=== PATIENT | male | born 1995 | race Caucasian/White ===

== ENCOUNTER 2017-03-07 04:23 | Emergency (ER) | payer MEDICAID, OTHER ==
[~2017-03-07] VITALS: Ht 180.3 cm; Wt 86.0 kg
[2017-03-07 07:19] VITALS: BP 138/68
== END 2017-03-07 07:21 | disposition home or self-care (01) ==
LOC: ER 04:30
DX: R51 Headache (principal)
CPT/HCPCS: 99283

== ENCOUNTER 2018-03-30 22:01 | Emergency (ER) | payer MEDICAID, OTHER ==
[~2018-03-30] VITALS: Ht 177.8 cm; Wt 100.0 kg
[2018-03-31 01:05] VITALS: BP 121/68
== END 2018-03-31 01:15 | disposition home or self-care (01) ==
LOC: ER 22:01
DX: Z00.01 Encounter for general adult medical examination with abnormal findings (principal); J45.909 Unspecified asthma, uncomplicated; F31.9 Bipolar disorder, unspecified
CPT/HCPCS: 99283

== ENCOUNTER 2020-03-16 05:08 | Emergency (ER) | payer MEDICAID, OTHER ==
[~2020-03-16] VITALS: Ht 180.3 cm; Wt 95.0 kg
[2020-03-16 09:10] VITALS: BP 131/86
== END 2020-03-16 09:18 | disposition home or self-care (01) ==
LOC: ER 05:08
DX: J45.909 Unspecified asthma, uncomplicated (principal); K21.9 Gastro-esophageal reflux disease without esophagitis; F32.9 Major depressive disorder, single episode, unspecified; Z03.818 Encounter for observation for suspected exposure to other biological agents ruled out
CPT/HCPCS: 99281

== ENCOUNTER 2022-09-28 21:32 | Emergency (ER) | payer MEDICAID, MEDICARE ==
[~2022-09-28] VITALS: Ht 180.3 cm; Wt 110.0 kg
[2022-09-28] MEDS ORDERED: PREDNISONE 20MG TABLET PO ONE (22:45)
[2022-09-28] MEDS ORDERED: ALBUTEROL (0.083%) 2.5MG/3ML NEB HHN ONE (22:45)
[2022-09-29] MEDS ORDERED: ALBUTEROL (0.083%) 2.5MG/3ML NEB HHN ONE (00:30)
[2022-09-29] MEDS ORDERED: P20 MT (01:10)
[2022-09-29] MEDS ORDERED: ALBU18HF2 IH (01:10)
[2022-09-29 02:00] VITALS: BP 132/81
== END 2022-09-29 02:08 | disposition home or self-care (01) ==
LOC: ER 21:32
DX: J45.901 Unspecified asthma with (acute) exacerbation (principal); B34.9 Viral infection, unspecified; F41.9 Anxiety disorder, unspecified; J45.909 Unspecified asthma, uncomplicated; F32.9 Major depressive disorder, single episode, unspecified; Z20.822 Contact with and (suspected) exposure to COVID-19
CPT/HCPCS: 71045; 87426; 87804; 93005; 94640; 99285; C9803; J7512; Z7610

== ENCOUNTER 2023-03-30 23:25 | Emergency (ER) | payer MEDICAID, MEDICARE ==
[~2023-03-30] VITALS: Ht 175.3 cm; Wt 91.0 kg
[~2023-03-30 23:25] MED LIST: ALBU18HF2 IH; P20 MT
[2023-03-31] MEDS ORDERED: PREDNISONE 20MG TABLET PO ONE
[2023-03-31] MEDS ORDERED: IPRATROPIUM/ALBUTEROL 0.5-3(2.5)MG/3ML NEB HHN ONE
[2023-03-31] MEDS ORDERED: METHYLPREDNISOLONE SOD SUCC 125 MG/2 ML VIAL IV ONE (00:15)
[2023-03-31] MEDS ORDERED: MAGNESIUM 2 G PREMIX 50 ML IV ONE (00:15)
[2023-03-31 00:38] LABS: BASOPHILS % 0.6 % (0.0-2.0); EOSINOPHILS % 4.7 % (0.0-5.0); HEMATOCRIT. 44.2 % (42.0-52.0); HEMOGLOBIN. 14.7 g/dL (14.0-18.0); LYMPHOCYTES % 30.2 % (20.0-50.0); MEAN CORPUSCULAR HEMOGLOBIN 28.1 pg (28.0-32.0); MEAN CORPUSCULAR VOLUME 84.6 fL (80.0-94.0); MEAN PLATELET VOLUME 8.9 fl (7.4-10.4); MONOCYTES % 4.8 % (2.0-8.0); NEUTROPHILS % 59.7 % (40.0-76.0); PLATELET 201 x1000/uL (130-400); RED BLOOD CELL COUNT 5.22 mill/uL (4.7-6.1); RED CELL DISTRIBUTION WIDTH 13.6 % (11.6-14.6)
[2023-03-31 00:50] LABS: CHLORIDE 107 mEq/L (98-107)
[2023-03-31 01:50] VITALS: BP 117/63
[2023-03-31] MEDS ORDERED: P20 PO (02:14)
[2023-03-31] MEDS ORDERED: ALBU18HF2 IH (02:14)
[2023-03-31] MEDS ORDERED: POTASSIUM CHLORIDE 20MEQ TABLET SR PO NR (02:15)
[2023-03-31] MEDS ORDERED: DIPHENHYDRAMINE 25MG CAPSULE PO NR (02:30)
== END 2023-03-31 02:55 | disposition home or self-care (01) ==
LOC: ER 23:25
DX: J45.901 Unspecified asthma with (acute) exacerbation (principal); E87.6 Hypokalemia
CPT/HCPCS: 36415; 71045; 80048; 85025; 93005; 96365; 96375; 99285; J2930; J3475; Q0163; J7512

== ENCOUNTER 2024-03-06 13:57 | Emergency (ER) | payer MEDICARE ==
[~2024-03-06] VITALS: Ht 180.3 cm; Wt 113.0 kg
[~2024-03-06 13:57] MED LIST changes: +P20 PO
[2024-03-06 14:13] VITALS: O2SAT 100
[2024-03-06] MEDS: LIDOCAINE 5% PATCH TOP SCH (16:00)
[2024-03-06] MEDS: ACETAMINOPHEN 325MG TABLET PO NR (16:01)
[2024-03-06 18:13] VITALS: BP 124/70; PULSE 80; RESP 16; TEMP 98.5
== END 2024-03-06 18:25 | disposition home or self-care (01) ==
LOC: ER 13:57
DX: M54.50 Low back pain, unspecified (principal); R07.81 Pleurodynia; F41.9 Anxiety disorder, unspecified; J45.909 Unspecified asthma, uncomplicated; F32.9 Major depressive disorder, single episode, unspecified
CPT/HCPCS: 99283

== ENCOUNTER 2024-07-08 13:19 | Emergency (ER) | payer MEDICARE ==
[~2024-07-08] VITALS: Ht 180.3 cm; Wt 120.0 kg
[2024-07-08 13:23] VITALS: O2SAT 100
[2024-07-08] MEDS ORDERED: KETOROLAC 30MG/ML VIAL IM ONE (13:45)
[2024-07-08] MEDS: KETOROLAC 30MG/ML VIAL IM NR (13:45)
[2024-07-08] MEDS: ACYCLOVIR 400 MG TABLET PO ONE (13:45)
[2024-07-08 13:54] LABS: BASOPHILS % 0.5 % (0.0-2.0); EOSINOPHILS % 3.9 % (0.0-5.0); HEMATOCRIT. 38.6 % (42.0-52.0); HEMOGLOBIN. 12.7 g/dL (14.0-18.0); LYMPHOCYTES % 33.1 % (20.0-50.0); MEAN CORPUSCULAR VOLUME 84.8 fL (80.0-94.0); MEAN PLATELET VOLUME 8.7 fl (7.4-10.4); MONOCYTES % 7.5 % (2.0-8.0); PLATELET 239 x1000/uL (130-400); RED BLOOD CELL COUNT 4.55 mill/uL (4.7-6.1); RED CELL DISTRIBUTION WIDTH 13.9 % (11.6-14.6); WHITE BLOOD COUNT 7.6 x1000/uL (4.5-11.0)
[2024-07-08 13:57] LABS: CARBON DIOXIDE 26 mEq/L (21-32); CHLORIDE 106 mEq/L (98-107); POTASSIUM 3.9 mEq/L (3.5-5.1); SODIUM 138 mEq/L (136-145)
[2024-07-08 13:58] LABS: CALCIUM 9.4 mg/dL (8.7-10.4)
[2024-07-08 14:03] LABS: CREATININE 0.7 mg/dL (0.6-1.3); GLUCOSE 108 mg/dL (70-105); UREA NITROGEN BLOOD 11 mg/dL (9-23)
[2024-07-08 14:05] LABS: TROPONIN I HIGH SENSITIVITY 27 ng/L (3.0-53)
[2024-07-08 14:27] LABS: CLARITY URINE CLEAR (CLEAR); COLOR URINE YELLOW (YELLOW); GLUCOSE URINE NEGATIVE (NEGATIVE); KETONES URINE NEGATIVE (NEGATIVE); LEUKOCYTE ESTERASE URINE NEGATIVE (NEGATIVE); NITRITE URINE NEGATIVE (NEGATIVE); OCCULT BLOOD URINE NEGATIVE (NEGATIVE); PH URINE 5.5 (4.5-8.0); PROTEIN URINE NEGATIVE (NEGATIVE); SPECIFIC GRAVITY URINE 1.019 (1.005-1.030); UROBILINOGEN URINE 0.2 E.U./dL (0.2-1.0)
[2024-07-08 15:08] LABS: TROPONIN I HIGH SENSITIVITY 26 ng/L (3.0-53)
[2024-07-08 16:30] VITALS: BP 113/75; PULSE 63; RESP 20; TEMP 98.3
[2024-07-08] MEDS ORDERED: ACYC200C31 MT (17:14)
== END 2024-07-08 16:49 | disposition home or self-care (01) ==
LOC: ER 13:19
DX: R07.89 Other chest pain (principal); F41.9 Anxiety disorder, unspecified; J45.909 Unspecified asthma, uncomplicated; F32.9 Major depressive disorder, single episode, unspecified; Z79.899 Other long term (current) drug therapy
CPT/HCPCS: 80048; 81003; 85025; 84484; 36415; 71045; 96372; 99284; J1885; Z7610

== ENCOUNTER 2025-01-29 12:20 | Emergency (ER) | payer MEDICARE ==
[~2025-01-29] VITALS: Ht 180.3 cm; Wt 113.0 kg
[~2025-01-29 12:20] MED LIST changes: +ACYC200C31 MT
[2025-01-29 12:24] VITALS: O2SAT 98
[2025-01-29 12:25] VITALS: BP 111/44; PULSE 72; RESP 12; TEMP 36.5; O2SAT 97
== END 2025-01-29 14:39 | disposition home or self-care (01) ==
LOC: ER 12:20
DX: B34.9 Viral infection, unspecified (principal); J45.909 Unspecified asthma, uncomplicated; Z79.52 Long term (current) use of systemic steroids
CPT/HCPCS: 71045; 99283

== ENCOUNTER 2025-03-13 12:16 | Emergency (ER) | payer MEDICARE ==
[~2025-03-13] VITALS: Ht 182.9 cm; Wt 123.0 kg
[2025-03-13] MEDS: PREDNISONE 20MG TABLET PO ONE (13:08)
[2025-03-13 13:15] VITALS: PULSE 74; RESP 18; O2SAT 96
[2025-03-13] MEDS: ALBUTEROL (0.083%) 2.5MG/3ML NEB HHN ONE (13:16)
[2025-03-13] MEDS ORDERED: P50 MT (13:57)
[2025-03-13] MEDS ORDERED: ALBU18HF2 IH (13:57)
[2025-03-13 14:20] VITALS: BP 121/68; PULSE 72; RESP 18; TEMP 36.7; O2SAT 96
== END 2025-03-13 14:20 | disposition home or self-care (01) ==
LOC: ER 12:16
DX: J45.901 Unspecified asthma with (acute) exacerbation (principal); Z79.52 Long term (current) use of systemic steroids
CPT/HCPCS: 71045; 94640; 99283; J7512; Z7610 ×2; 94070; 94664

== ENCOUNTER 2025-03-29 16:44 | Emergency (ER) | payer MEDICARE ==
[~2025-03-29] VITALS: Ht 180.3 cm; Wt 127.0 kg
[~2025-03-29 16:44] MED LIST changes: +P50 MT
[2025-03-29 16:46] VITALS: PULSE 140; RESP 18; O2SAT 96
[2025-03-29 16:49] VITALS: BP 111/75; TEMP 36.9; O2SAT 94
[2025-03-29 17:43] LABS: DIFFERENTIAL COMMENT 1; HEMATOCRIT. 39.5 % (42.0-52.0); MEAN CORPUSCULAR HEMOGLOBIN 27.8 pg (28.0-32.0); MEAN CORPUSCULAR VOLUME 84.2 fL (80.0-94.0); MEAN PLATELET VOLUME 8.8 fl (7.4-10.4); PLATELET 220 x1000/uL (130-400); RED BLOOD CELL COUNT 4.69 mill/uL (4.7-6.1); RED CELL DISTRIBUTION WIDTH 13.4 % (11.6-14.6); WHITE BLOOD COUNT 14.6 x1000/uL (4.5-11.0)
[2025-03-29 17:51] LABS: CARBON DIOXIDE 25 mEq/L (21-32); CHLORIDE 105 mEq/L (98-107); POTASSIUM 3.4 mEq/L (3.5-5.1); SODIUM 141 mEq/L (136-145)
[2025-03-29 17:52] LABS: CALCIUM 9.3 mg/dL (8.7-10.4)
[2025-03-29 17:57] LABS: CREATININE 0.9 mg/dL (0.6-1.3); GLUCOSE 136 mg/dL (70-105); PLATELET ESTIMATE NORMAL; TROPONIN I HIGH SENSITIVITY 28 ng/L (3.0-53); UREA NITROGEN BLOOD 13 mg/dL (9-23)
[2025-03-29] MEDS: PREDNISONE 20MG TABLET PO SCH (18:16)
[2025-03-29] MEDS: IPRATROPIUM/ALBUTEROL 0.5-3(2.5)MG/3ML NEB HHN ONE (18:22)
[2025-03-29] MEDS ORDERED: P50 MT (19:49)
[2025-03-29] MEDS ORDERED: ALBU90AE INH (19:49)
== END 2025-03-29 19:54 | disposition home or self-care (01) ==
LOC: ER 16:44
DX: J45.901 Unspecified asthma with (acute) exacerbation (principal); Z79.899 Other long term (current) drug therapy; Z98.890 Other specified postprocedural states
CPT/HCPCS: 80048; 85025; 84484; 36415; 71045; 93005; 99285; J7512; Z7610

== ENCOUNTER 2025-08-02 11:54 | Emergency (ER) | payer MEDICARE ==
[~2025-08-02] VITALS: Ht 180.3 cm; Wt 113.0 kg
[~2025-08-02 11:54] MED LIST changes: +ACYC-58 MT; -ACYC200C31 MT; +ALBU90AE INH
[2025-08-02 12:14] VITALS: O2SAT 100
[2025-08-02 13:33] VITALS: BP 133/79; PULSE 62; RESP 18; TEMP 36.9; O2SAT 99
== END 2025-08-02 13:33 | disposition home or self-care (01) ==
LOC: ER 11:54
DX: S93.409A Sprain of unspecified ligament of unspecified ankle, initial encounter (principal); J45.909 Unspecified asthma, uncomplicated; Z79.899 Other long term (current) drug therapy; X58.XXXA Exposure to other specified factors, initial encounter; Y93.89 Activity, other specified; Y92.89 Other specified places as the place of occurrence of the external cause; Y99.8 Other external cause status
CPT/HCPCS: 73600; 99283

== ENCOUNTER 2025-09-10 17:58 | Emergency (ER) | payer MEDICARE ==
[~2025-09-10] VITALS: Ht 180.3 cm; Wt 113.0 kg
[2025-09-10 18:08] VITALS: TEMP 36.7
[2025-09-10] MEDS: IPRATROPIUM BROMIDE (0.02%) 0.5MG/2.5ML NEB HHN SCH (21:59)
[2025-09-10] MEDS: ALBUTEROL (0.083%) 2.5MG/3ML NEB HHN SCH (21:59)
[2025-09-10 22:00] VITALS: PULSE 74; RESP 20; O2SAT 97
[2025-09-10 23:04] VITALS: BP 133/88; PULSE 63; RESP 18; O2SAT 100
[2025-09-10] MEDS ORDERED: ALBU18HF2 IH (23:08)
== END 2025-09-10 23:16 | disposition home or self-care (01) ==
LOC: ER 17:58
DX: J45.901 Unspecified asthma with (acute) exacerbation (principal); E11.9 Type 2 diabetes mellitus without complications; Z79.899 Other long term (current) drug therapy
CPT/HCPCS: 71045; 94640; 99283; Z7610; 94070

== ENCOUNTER 2025-10-24 09:18 | Emergency (ER) | payer MEDICARE ==
[~2025-10-24] VITALS: Ht 177.8 cm; Wt 109.0 kg
[2025-10-24 09:30] VITALS: O2SAT 98
[2025-10-24 12:18] VITALS: BP 112/76; PULSE 63; RESP 16; TEMP 36.7; O2SAT 97
[2025-10-24] MEDS: IBUPROFEN 600MG TABLET PO ONE (14:55)
[2025-10-24] MEDS ORDERED: IBUP-1455 MT (15:06)
== END 2025-10-24 15:34 | disposition home or self-care (01) ==
LOC: ER 09:45
DX: M25.571 Pain in right ankle and joints of right foot (principal); J45.909 Unspecified asthma, uncomplicated
CPT/HCPCS: 73610; 73630; 99284